=== PATIENT | female | born 1985 | race Caucasian/White ===

== ENCOUNTER 2019-11-15 06:14 | Inpatient (IN) | payer BC ==
[2019-11-15] VITALS (46 sets, daily range): BP systolic 83–138; BP diastolic 53–95; PULSE 59–111; TEMP 97.7–98.4
[~2019-11-15] VITALS: Ht 167.6 cm; Wt 81.8 kg
--- NOTE | 2019-11-15 07:00 | NUR ---
0630- Pt arrives on unit with complaints of contractions and possible SROM. Pt changes into gown. 0642- Pt into bed, EFM and TOCO on and tracing. Pt states she noticed a small amount of fluid leaking, most often when she stands up after voiding, started at 0130 on 11/14/2019. Pt states contractions have been intermittent since then but became more regular and painful this morning. Has had some bloody mucus discharge. +FM. Amniotrace by this RN positive. SVE /-2, BOW felt with exam, able to lift baby's head off of cervix and no gush of fluid felt but moderate amount of fluid felt through membranes. 0650- Dr Cruz on unit. Updated on Pt status. Orders received.
[2019-11-15] MEDS ORDERED: PRENATAL TABLET PO (07:09)
[2019-11-15 07:42] LABS: BASO % 0.2 % (0.0-2.0); EOS % 0.4 % (0-4.0); GRAN # 8.2 (1.4-6.5); GRAN % 74.7 % (42.2-75.2); HEMATOCRIT 39.4 % (37.0-47.0); HEMOGLOBIN 13.2 g/dl (12.5-16.0); MEAN CELL VOLUME 92 fl (80.0-100.0); MEAN CORPUSCULAR HEMOGLOBIN 31 pg (27.0-31.0); MEAN CORPUSCULAR HGB CONC 34 g/dl (33.0-37.0); MEAN PLATELET VOLUME 11.3 fl (7.4-10.4); MONO # 0.7 (0.1-0.6); MONO % 6.2 % (1.7-9.3); PLATELET COUNT 180 K/mm3 (130-400); REDCELL DISTRIBUTION WIDTH-CV 14.3 % (11.5-14.5)
--- NOTE | 2019-11-15 08:44 | NUR ---
0844- Single shot by Kaden Harmon CRNA. 0846- Test does, see anesthesia record.
--- NOTE | 2019-11-15 09:00 | NUR ---
0833- RAVEN Ochoa at bedside for epidural placement. Pt assisted to sitting on side of bed. O2 sat monitor on and tracing. 0851- Pt assisted to SF with WL. EFM and TOCO adjusted. RN remains at bedside with Pt.
--- NOTE | 2019-11-15 09:45 | NUR ---
0916- Pt supine for smith placement. SVE 3-80/-2.Pt repositioned to RL. FHR tracing intermittent. FHR decel heard by RN but not tracing well. 0923- SVE 80/-2, FSE placed without difficulty. Ra RN at bedside to assist. Pt repositioned to LL. Ephedrine give per order. Pt repositioned to YOUSIF. FHR deceleration noted 85-95bpm with marked variability. 0928- FHR inproves to 120-150bpm. Returns to baseline of 115bpm by 09.
--- NOTE | 2019-11-15 17:03 | NUR ---
1442 - SVE /0. Dr. Cruz notified that pt complete. Given ok to start pushing with pt. 1446 - Armstrong removed. 1450 - Pt starts pushing with contractions. RN remains at bedside. 1500 - Pt continues pushing with contractions. FSE tracing FHR well, some artifact with pushing. FHR decreases into 90s-100s with pushing, recovers to baseline of 120 within 30-60 seconds. Moderate variability continues. 1529 - Pushing continues as noted previously. FHR decreasees into 60s-70s for 10-15 seconds while pushing, returns to 115-120s over 30 seconds or less. Moderate variability remains with accelerations noted.
--- NOTE | 2019-11-15 17:25 | NUR ---
1534 - Dr. Cruz called for delivery. 1548 - Dr. Cruz to bedside. Bed and pt prepped for delivery. Pushing continues with physician and RN at bedside. 1551 - FHT with pushing decrease into 60s, recovering to 100s at 1552. Variable decel with next contraction with FHT to 60s, recovering to 90s. Vaccuum applied by Dr. Cruz at this time. 1555 - Male infant delivered via vacuum assisted vaginal delivery. placed on mother's abdomen where dried and stimulated. Care of transferred to Melinda Huynh RN of nursery. 1558 - Placent spontaneously deliviered by Dr. Cruz. Pitocin started per protocol at this time. Fundal massage provided by RN as requested by physician. Repair of 2nd degree laceration performed by Dr. Cruz. See physician notes. 1610 - Pt repositioned for comfort. Ice pack placed on perineum, warm blankets provided. 1617 - Pt feeling dizzy. BP 67/43. Pt placed in supine position, LR bolus given at this time. 1621 - Pt feeling better, no reports of dizziness. BP 101/62.
--- NOTE | 2019-11-15 18:37 | NUR ---
1800 - Pt up to side of bed, epidural catheter removed. Pt ambulated to bathroom with assist of one RN and sat on toilet. Pt became very dizzy and lightheaded, cool rag placed on head and back of neck. Pericare provided, clean gown, panties, and pad placed. Pt could not void. Pt assisted to standing by this RN and Melinda Huynh RN, at which time pt passed out. Pt assisted to floor. Feng Tapia RN to bathroom with amonia. Pt back alert after amonia to nose, and assisted into wheelchair. Pt taken to room and assisted into bed. Pt instructed to call out for help when needing to get up, pt verbalized understanding. Pt oriented to room, denies further needs at this time.
[2019-11-16 04:40] VITALS: BP 96/51; PULSE 86; TEMP 98.2
[2019-11-16 07:39] VITALS: BP 104/65; PULSE 83; TEMP 98.5
[2019-11-16] MEDS ORDERED: MOTRIN 800800 MG/TAB PO (08:50)
[2019-11-16] MEDS ORDERED: PERCOCET 325 MG1 TA2 PO (08:51)
--- NOTE | 2019-11-16 09:36 | NUR ---
Initial visit; Parents thanked Maintenance Plumber for offering congratulations and God's blessings for the of their son. Maintenance Plumber thanked family for choosing our hospital.
[2019-11-16 11:45] VITALS: BP 104/58; PULSE 77; TEMP 97.9
[2019-11-16 20:55] VITALS: BP 114/62; PULSE 78; TEMP 97.6
[2019-11-17 08:20] VITALS: BP 110/54; PULSE 85; TEMP 97.9
--- NOTE | 2019-11-17 11:42 | NUR ---
1100 DISCHARGE INSTRUCTIONS REVIEWED WITH PATIENT. PATIENT VERBALIZED UNDERSTANDING. ALL QUESTIONS ANSWERED. PATIENT WILL NOTIFY THIS RN WHEN READY TO LEAVE. 1135 ALL PERSONAL BELONGINGS GATHERED FROM PATIENT ROOM. PATIENT LEFT AMBULATORY AND IN NO APPARENT DISTRESS. PATIENT ACCOMPANIED BY SPOUSE AND THIS RN.
== END 2019-11-17 11:35 | disposition home or self-care (01) | DRG 807 ==
LOC: LDRO 06:14 → LDR 06:50 → OB 06:50
PROVIDERS: ADMIT Obstetrics & Gynecology
PROC: 10D07Z6 Extraction of Products of Conception, Vacuum, Via Natural or Artificial Opening (ICD-10-PCS; principal; 2019-11-15)
PROC: 0KQM0ZZ Repair Perineum Muscle, Open Approach (ICD-10-PCS; 2019-11-15)
PROC: 10907ZC Drainage of Amniotic Fluid, Therapeutic from Products of Conception, Via Natural or Artificial Opening (ICD-10-PCS; 2019-11-15)
DX: O76 Abnormality in fetal heart rate and rhythm complicating labor and delivery (principal); Z37.0 Single live birth; O70.1 Second degree perineal laceration during delivery; Z3A.40 40 weeks gestation of pregnancy
CPT/HCPCS: J2590; J2795; J7120